=== PATIENT | female | born 1990 | race Caucasian/White ===

== ENCOUNTER 2017-03-12 00:31 | Inpatient (IN) | payer OTHER ==
[~2017-03-12] VITALS: Ht 167.6 cm; Wt 124.7 kg
[2017-03-12] MEDS ORDERED: SODIUM CHLORIDE 0.9% 1,000 ML IV ONE ×2 (01:03→02:53)
[2017-03-12] MEDS ORDERED: METOCLOPRAMIDE HCL 10MG/2ML VIAL IV STA (01:03)
[2017-03-12] MEDS ORDERED: MORPHINE SULFATE 4 MG/ML CPJ (NOT FOR IM USE) IV STA (01:03)
[2017-03-12] MEDS ORDERED: MAGNESIUM/ALUMINUM HYDROXIDE/SIMETHICONE 30ML UDC PO STA (01:03)
[2017-03-12 01:18] LABS: BASOPHILS % 0.4 % (0.0-2.0); EOSINOPHILS % 0.3 % (0.0-5.0); HEMOGLOBIN. 11.8 g/dL (12.0-16.0); LYMPHOCYTES % 25.8 % (20.0-50.0); MEAN CORPUSCULAR HEMOGLOBIN 27.3 pg (28.0-32.0); MEAN CORPUSCULAR VOLUME 80.9 fL (81.0-99.0); MEAN PLATELET VOLUME 9.7 fl (7.4-10.4); MONOCYTES % 5.2 % (2.0-8.0); NEUTROPHILS % 68.3 % (40.0-76.0); PLATELET 200 x1000/uL (130-400); RED BLOOD CELL COUNT 4.33 mill/uL (4.2-5.4); RED CELL DISTRIBUTION WIDTH 17.5 % (11.6-14.6)
[2017-03-12 01:20] LABS: CHLORIDE 102 mEq/L (98-107)
[2017-03-12 01:28] LABS: CARBON DIOXIDE 29 mEq/L (21-32)
[2017-03-12] MEDS ORDERED: IOHEXOL-300 100 ML BOTTLE ONE (06:00)
[2017-03-12] MEDS ORDERED: SODIUM CHLORIDE 0.9% 10ML VIAL ONE (06:00)
[2017-03-12 06:17] VITALS: BP 126/89
[2017-03-12] MEDS ORDERED: DIPHENHYDRAMINE 50MG/ML VIAL IV PRN (07:30)
[2017-03-12] MEDS ORDERED: TRAMADOL 50MG TABLET PO PRN (07:30)
[2017-03-12] MEDS ORDERED: ACETAMINOPHEN 325MG TABLET PO PRN (07:30)
[2017-03-12] MEDS ORDERED: LORAZEPAM 2MG/ML CPJ IV PRN (07:30)
[2017-03-12] MEDS ORDERED: IPRATROPIUM/ALBUTEROL 0.5-3(2.5)MG/3ML NEB INH PRN (07:30)
[2017-03-12] MEDS ORDERED: NA PHOS,M-B/NA PHOS,DI-BA ENEMA 118ML PR PRN (07:30)
[2017-03-12] MEDS ORDERED: CLONIDINE 0.1MG TABLET PO PRN (07:30)
[2017-03-12] MEDS ORDERED: GUAIFENESIN 200MG/10ML SUGAR FREE UDC PO PRN (07:30)
[2017-03-12 08:00] VITALS: BP_SYST 122; BP_SYST 127; BP_DIAS 77; BP_DIAS 83
[2017-03-12] MEDS: SODIUM CHLORIDE 0.9% 1,000 ML IV SCH ×3 (08:00→19:01)
[2017-03-12] MEDS: MORPHINE SULFATE 2 MG/ML CPJ (NOT FOR IM USE) IV PRN ×4 (08:17→23:26)
[2017-03-12] MEDS: PANTOPRAZOLE SODIUM 40 MG/VIAL IV SCH (08:17)
[2017-03-12] MEDS ORDERED: MAGNESIUM/ALUMINUM HYDROXIDE/SIMETHICONE 30ML UDC PO PRN (09:00)
[2017-03-12 12:18] LABS: PARTIAL THROMBOPLASTIN TIME 27.1 sec (24.0-34.0); PROTHROMBIN TIME 10.1 sec
[2017-03-12] MEDS: ONDANSETRON HCL 4MG/2ML VIAL IV PRN ×3 (12:45→23:25)
[2017-03-12 16:00] VITALS: BP 111/69
[2017-03-12] MEDS: DOCUSATE SODIUM 100MG CAPSULE PO PRN ×2 (16:15→23:35)
[2017-03-12 20:00] VITALS: BP 109/70
[2017-03-12] MEDS ORDERED: ZOLPIDEM TARTRATE 5MG TABLET PO PRN (21:00)
[2017-03-13] VITALS: BP 97/65
[2017-03-13 04:00] VITALS: BP 107/73
[2017-03-13 05:25] LABS: BASOPHILS % 0.1 % (0.0-2.0); EOSINOPHILS % 0.1 % (0.0-5.0); HEMATOCRIT. 32.7 % (36.0-48.0); LYMPHOCYTES % 11.7 % (20.0-50.0); MEAN CORPUSCULAR HEMOGLOBIN 27.4 pg (28.0-32.0); MEAN CORPUSCULAR VOLUME 81.5 fL (81.0-99.0); MONOCYTES % 4.3 % (2.0-8.0); NEUTROPHILS % 83.8 % (40.0-76.0); PLATELET 202 x1000/uL (130-400); RED BLOOD CELL COUNT 4.02 mill/uL (4.2-5.4); RED CELL DISTRIBUTION WIDTH 17.1 % (11.6-14.6)
[2017-03-13 05:34] LABS: AMYLASE 114 IU/L (25-115); CARBON DIOXIDE 28 mEq/L (21-32); CHLORIDE 101 mEq/L (98-107)
[2017-03-13] MEDS: ONDANSETRON HCL 4MG/2ML VIAL IV PRN ×4 (05:53→23:21)
[2017-03-13] MEDS: MORPHINE SULFATE 2 MG/ML CPJ (NOT FOR IM USE) IV PRN ×4 (05:54→23:24)
[2017-03-13] MEDS: SODIUM CHLORIDE 0.9% 1,000 ML IV SCH ×4 (07:12→23:30)
[2017-03-13 08:00] VITALS: BP 99/67
[2017-03-13] MEDS: PANTOPRAZOLE SODIUM 40 MG/VIAL IV SCH (10:17)
[2017-03-13] MEDS ORDERED: POTASSIUM CHLORIDE 20MEQ TABLET SR PO NR (10:30)
[2017-03-13] MEDS: DOCUSATE SODIUM 100MG CAPSULE PO PRN (10:37)
[2017-03-13] MEDS ORDERED: KCL 20MEQ/100ML PREMIX 100 ML IV NR (11:00)
[2017-03-13 12:00] VITALS: BP 97/64
[2017-03-13] MEDS: LACTULOSE 20G/30ML UDC PO SCH ×2 (14:36→22:00)
[2017-03-13 16:00] VITALS: BP 103/73
[2017-03-13 16:39] LABS: CLARITY URINE CLEAR (CLEAR); COLOR URINE DARK YELLOW (YELLOW); GLUCOSE URINE NEGATIVE (NEGATIVE); KETONES URINE NEGATIVE (NEGATIVE); LEUKOCYTE ESTERASE URINE 1+ (NEGATIVE); NITRITE URINE NEGATIVE (NEGATIVE); OCCULT BLOOD URINE 3+ (NEGATIVE); PROTEIN URINE TRACE (NEGATIVE); SPECIFIC GRAVITY URINE 1.024 (1.005-1.030)
[2017-03-13] MEDS: LEVOFLOXACIN 500MG PREMIX 100 ML IV SCH (18:02)
[2017-03-13 20:00] VITALS: BP 112/74
[2017-03-14] VITALS: BP 103/67
[2017-03-14] MEDS: LACTULOSE 20G/30ML UDC PO SCH ×3 (06:00→22:00)
[2017-03-14] MEDS: SODIUM CHLORIDE 0.9% 1,000 ML IV SCH ×3 (06:10→19:30)
[2017-03-14 06:24] LABS: BASOPHILS % 0.1 % (0.0-2.0); HEMATOCRIT. 29.6 % (36.0-48.0); LYMPHOCYTES % 14.2 % (20.0-50.0); MEAN CORPUSCULAR HEMOGLOBIN 27.4 pg (28.0-32.0); MEAN CORPUSCULAR VOLUME 81.4 fL (81.0-99.0); MEAN PLATELET VOLUME 9.6 fl (7.4-10.4); MONOCYTES % 6.2 % (2.0-8.0); NEUTROPHILS % 79.5 % (40.0-76.0); PLATELET 198 x1000/uL (130-400); RED BLOOD CELL COUNT 3.64 mill/uL (4.2-5.4); RED CELL DISTRIBUTION WIDTH 16.9 % (11.6-14.6)
[2017-03-14] MEDS: ONDANSETRON HCL 4MG/2ML VIAL IV PRN (06:31)
[2017-03-14] MEDS: MORPHINE SULFATE 2 MG/ML CPJ (NOT FOR IM USE) IV PRN ×4 (06:38→18:50)
[2017-03-14 07:46] VITALS: BP 114/76
[2017-03-14 08:00] VITALS: BP 117/75
[2017-03-14] MEDS: PANTOPRAZOLE SODIUM 40 MG/VIAL IV SCH (09:50)
[2017-03-14 12:00] VITALS: BP 108/71
[2017-03-14] MEDS: LEVOFLOXACIN 500MG PREMIX 100 ML IV SCH (13:54)
[2017-03-14 16:00] VITALS: BP 113/77
[2017-03-14 20:00] VITALS: BP 106/64
[2017-03-15] VITALS: BP 112/63
[2017-03-15] MEDS: ONDANSETRON HCL 4MG/2ML VIAL IV PRN (01:13)
[2017-03-15] MEDS: MORPHINE SULFATE 2 MG/ML CPJ (NOT FOR IM USE) IV PRN (01:14)
[2017-03-15] MEDS: SODIUM CHLORIDE 0.9% 1,000 ML IV SCH (02:10)
[2017-03-15 04:00] VITALS: BP 108/62
[2017-03-15 05:55] LABS: BASOPHILS % 0.3 % (0.0-2.0); EOSINOPHILS % 0.2 % (0.0-5.0); HEMATOCRIT. 28.8 % (36.0-48.0); HEMOGLOBIN. 9.6 g/dL (12.0-16.0); LYMPHOCYTES % 22.3 % (20.0-50.0); MEAN CORPUSCULAR HEMOGLOBIN 27.2 pg (28.0-32.0); MEAN CORPUSCULAR VOLUME 81.8 fL (81.0-99.0); MEAN PLATELET VOLUME 9.2 fl (7.4-10.4); MONOCYTES % 6.6 % (2.0-8.0); NEUTROPHILS % 70.6 % (40.0-76.0); PLATELET 212 x1000/uL (130-400); RED BLOOD CELL COUNT 3.52 mill/uL (4.2-5.4); RED CELL DISTRIBUTION WIDTH 16.5 % (11.6-14.6)
[2017-03-15] MEDS: LACTULOSE 20G/30ML UDC PO SCH (06:00)
[2017-03-15 06:35] LABS: CARBON DIOXIDE 31 mEq/L (21-32); CHLORIDE 100 mEq/L (98-107)
[2017-03-15 08:00] VITALS: BP 87/80
[2017-03-15] MEDS ORDERED: POTASSIUM CHLORIDE 20MEQ TABLET SR PO SCH (09:00)
[2017-03-15] MEDS ORDERED: FAMOTIDINE 20MG TABLET PO SCH (09:00)
[2017-03-15] MEDS ORDERED: POTASSIUM CHLORIDE INJ 40 MEQ in DEXT 5% WATER 500 ML IV SCH (09:30)
[2017-03-15] MEDS ORDERED: PANTOPRAZOLE SODIUM 40 MG/VIAL IV SCH (09:30)
[2017-03-15] MEDS ORDERED: POTASSIUM CHLORIDE 20MEQ TABLET SR PO NR (10:00)
[2017-03-15] MEDS ORDERED: POTASSIUM CHLORIDE INJ 20 MEQ in DEXT 5%/0.9% NACL 1,000 ML IV SCH (10:30)
[2017-03-15 11:49] VITALS: BP 116/84
[2017-03-15 12:09] LABS: CARBON DIOXIDE 32 mEq/L (21-32); CHLORIDE 100 mEq/L (98-107)
== END 2017-03-15 13:02 | disposition home or self-care (01) | DRG 282 ==
LOC: ER 00:31 → 6EST 05:29 → EDBD 05:29 → EDBEDREQ 05:31 → EDBEDREQTM 05:31 → ENRESERV 05:40
PROVIDERS: ADMIT Internal Medicine; ATTEND Internal Medicine
DX: K85.10 Biliary acute pancreatitis without necrosis or infection (principal); E44.0 Moderate protein-calorie malnutrition; Z68.41 Body mass index [BMI] 40.0-44.9, adult; K83.8 Other specified diseases of biliary tract; E66.01 Morbid (severe) obesity due to excess calories; R16.0 Hepatomegaly, not elsewhere classified; K57.30 Diverticulosis of large intestine without perforation or abscess without bleeding; D50.9 Iron deficiency anemia, unspecified; E87.6 Hypokalemia; I51.7 Cardiomegaly; K44.9 Diaphragmatic hernia without obstruction or gangrene; K82.8 Other specified diseases of gallbladder; K80.70 Calculus of gallbladder and bile duct without cholecystitis without obstruction; R74.0 Nonspecific elevation of levels of transaminase and lactic acid dehydrogenase [LDH]
CPT/HCPCS: 36415; 74177; 74181; 76705; 80048; 80053; 80076; 81001; 82150; 82248; 83036; 83690; 84132; 84478; 85025; 85610; 85730; 87086; 96361; 96374; 96375; 99285; A4216; C1893; C9113; J1956; J2270; J2405; J2765; J3480; J7030; J7042; J7060; Q9967